=== PATIENT | male | born 1985 | race Caucasian/White ===

== ENCOUNTER 2021-10-20 01:16 | Emergency (ER) | payer SELFPAY ==
[~2021-10-20] VITALS: Ht 182.9 cm; Wt 100.0 kg
[2021-10-20] MEDS ORDERED: TETANUS, DIPHTHERIA, PERTUSSIS VAC/PF 0.5ML (>10YR OLD) IM ONE (02:00)
[2021-10-20] MEDS ORDERED: LIDOCAINE HCL 1% 20ML VIAL (Pyxis) INJ INFIL ONE (02:00)
[2021-10-20] MEDS ORDERED: MORPHINE SULFATE 4 MG/ML CPJ (NOT FOR IM USE) IV ONE ×2 (02:00→04:45)
[2021-10-20] MEDS ORDERED: CEPH500C2 MT (04:38)
[2021-10-20] MEDS ORDERED: IBUP-2029 MT (04:38)
[2021-10-20] MEDS ORDERED: CEFAZOLIN 1000MG PREMIX 50 ML IV ONE (04:45)
[2021-10-20 05:30] VITALS: BP 124/83
== END 2021-10-20 05:50 | disposition home or self-care (01) ==
LOC: ER 01:16
DX: S61.412A Laceration without foreign body of left hand, initial encounter (principal); Y08.89XA Assault by other specified means, initial encounter; Y93.89 Activity, other specified; Y92.89 Other specified places as the place of occurrence of the external cause; Y99.8 Other external cause status
CPT/HCPCS: 12005; 90471; 90715; 96374; 99284; J2270; J3490